=== PATIENT | male | born 1980 | race Caucasian/White ===

== ENCOUNTER 2018-02-16 08:19 | Emergency (ER) | payer BC ==
--- NOTE | 2018-02-16 10:31 | RAD ---
INDICATION: Right testicular pain-resolved COMPARISON: None TECHNIQUE: Duplex interrogation of the scrotum was performed. FINDINGS: Testicles: The testicles are Normal in size and echogenicity. There is no evidence of testicular mass. There are several tiny testicular calcifications bilaterally consistent with microlithiasis. There is symmetric flow on Doppler interrogation. There is no evidence of torsion.. The right testis measures 4.7 x 2.2 x 2.9 cm and the left 4.7 x 2.3 x 3.1 cm. There is symmetric flow on Doppler interrogation. Epididymides: There is a tiny right-sided epididymal cyst measuring 0.3 cm. The epididymides are normal in size. There is symmetric flow on Doppler interrogation. The right epididymal head measures 1.3 x 1.0 cm and the left 1.6 x 1.1 cm. Hydroceles: There is a small right-sided hydrocele. There is a large left-sided hydrocele containing debris. Varicoceles: None. Other: None. IMPRESSION: NO EVIDENCE OF WORRISOME TESTICULAR MASS OR TORSION. INCIDENTAL TESTICULAR MICROLITHIASIS. INCIDENTAL TINY RIGHT-SIDED EPIDIDYMAL CYST. LARGE, COMPLEX LEFT-SIDED HYDROCELE
--- NOTE | 2018-02-16 10:34 | ED ---
Abdominal Pain/Male - HPI Summary HPI Summary: 37 yo WM c/o waking up with right testicular pain radiating to flank and back not pain improved after urinating twice, once at home and once in ER - History of Current Complaint Chief Complaint: UCGU Stated Complaint: BACK PAIN Time Seen by Provider: 02/16/18 08:37 Hx Obtained From: Patient Onset/Duration: Sudden Onset Timing: Constant Severity Initially: Moderate Severity Currently: Mild Pain Intensity: 4 Radiates to: Back, Flank Character: Sharp, Dull, Colicy Aggravating Factor(s): Nothing Alleviating Factor(s): Nothing Associated Signs And Symptoms: Positive: Negative - Allergies/Home Medications Allergies/Adverse Reactions: Allergies Allergy/AdvReac Type Severity Reaction Status Date / Time No Known Allergies Allergy Verified 02/16/18 08:29 PMH/Surg Hx/FS Hx/Imm Hx Previously Healthy: Yes - Surgical History Surgery Procedure, Year, and Place: T & A Infectious Disease History: No Infectious Disease History: Denies: Traveled Outside the in Last 30 Days - Social History Alcohol Use: Occasionally Substance Use Type: Reports: None Smoking Status (MU): Never Smoked Tobacco Review of Systems Constitutional: Negative Eyes: Negative ENT: Negative Cardiovascular: Negative Respiratory: Negative Positive: Abdominal Pain, Other - right flank pain Positive: see HPI, flank pain, other - right testicular pain radiating to flank and back Musculoskeletal: Negative Skin: Negative All Other Systems Reviewed And Are Negative: Yes Physical Exam Triage Information Reviewed: Yes Vital Signs On Initial Exam: Initial Vitals Temp Pulse Resp BP Pulse Ox 36.8 C 87 18 156/110 100 02/16/18 08:24 02/16/18 08:24 02/16/18 08:24 02/16/18 08:24 02/16/18 08:24 Appearance: Positive: No Pain Distress Skin: Positive: Warm Eyes: Positive: Normal ENT: Positive: Normal ENT inspection Neck: Positive: Supple Respiratory/Lung Sounds: Positive: Clear to Auscultation Cardiovascular: Positive: Normal Abdomen Description: Positive: Other: - right flank tenderness. Negative: CVA Tenderness (R), CVA Tenderness (L) Bowel Sounds: Positive: Present Male Genital Exam: Positive: Other - Declined exam Musculoskeletal: Positive: Normal Neurological: Positive: Normal, CN Intact II-III Diagnostics - Vital Signs Vital Signs Temp Pulse Resp BP Pulse Ox 02/16/18 08:24 36.8 C 87 18 156/110 100 - Laboratory Lab Results: Lab Results 02/16/18 Range/Units 08:37 POC Urine Color Yellow POC Urine Clarity Clear POC Urine pH 6.5 (5-9) POC Ur Specif [place] 1.015 (1.010-1.030) POC Urine Protein 1+ A (Negative) POC Ur Glucose (UA) Negative (Negative) POC Urine Ketones Negative (Negative) POC Urine Blood 3+ A (Negative) POC Urine Nitrite Negative (Negative) POC Urine Bilirubin Negative (Negative) POC Urine Urobilinogen 0.2 (Negative) POC U Leukocyte Esteras Negative (Negative) Lab Statement: Any lab studies that have been ordered have been reviewed, and results considered in the medical decision making process. Abdominal Pain Fem Course/Dx - Course Course Of Treatment: UA reveals 3+ hematuria. Testicular sono- NO testicular mass or torsion, incidental tesiticular microlithiasis. Incidental tiny right sided epididymal cyst. Large complex left sided hydrocele. Renal sono- Normal B /L renal cortical echogenicity, No conspicuous stone, hydro or focal renal lesions. Dr Hudson office called, asked pt to be scheduled but refused unless a bladder US with ureteral jets are done. 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 Pt was still directed to follow up with urology if testicular pain continues. In my opinion, there are 2 processes going on,. 1) renal colic- pt has 3+ hematuria, and in light of cessation of pain AFTER voiding twice, pt probably PASSED a renal stone, therefore a bladder sono with ureteral jets ARE NOT NEEDED Urgently at this time. 2) Testicular pain- base of testicle- has hydroceles L>R, which can also be a cause for pain though not acutely and in such intensity, HOWEVER, pt should see a urologist in order that his large hydroceles are not increasingly hindering his daily functions and if he would need further intervention at some point. As such, a bladder sono can be obtained at urologist's upon further evaluation by urologist if testicular pain continues - Diagnoses Provider Diagnoses: Testicular/scrotal pain, Renal colic Discharge - Sign-Out/Discharge Documenting (check all that apply): Discharge/Admit/Transfer - Discharge Plan Condition: Stable Disposition: HOME Prescriptions: Ketorolac TAB * [Toradol TAB *] 10 mg PO Q6H 5 Days #30 tab Patient Education Materials: Renal Colic (ED), Testicle Pain (ED) Referrals: Rasta Hudson MD [Medical Doctor] - Additional Instructions: Follow up with urology if testicular pain continues - Billing Disposition and Condition Condition: STABLE Disposition: HOME
[2018-02-16] MEDS ORDERED: Ketorolac INJ* 60 MG/2 ML VIAL IM ONE (10:36)
--- NOTE | 2018-02-16 10:38 | RAD ---
Indication: RIGHT testicular and back pain. Comparison: No relevant prior exams available on the [facility] PACS for comparison. Technique: Renal ultrasound. Report: 12.8 x 4.5 x 6.0 cm RIGHT kidney. 12.6 x 4.5 x 4.6 cm LEFT kidney. Normal bilateral renal cortical echogenicity. No conspicuous stones, hydronephrosis, or focal renal lesions. Negative for perinephric fluid. IMPRESSION: Negative renal ultrasound.
== END 2018-02-16 12:22 | disposition home or self-care (01) ==
LOC: UCEAST 08:19
DX: N50.811 Right testicular pain (principal); N50.3 Cyst of epididymis; N23 Unspecified renal colic; N43.3 Hydrocele, unspecified
CPT/HCPCS: 76775; 76870; 81003; 96372; 99202; G0463; J1885

== ENCOUNTER 2018-05-14 18:57 | Emergency (ER) | payer BC ==
[2018-05-14 19:20] VITALS: BP 148/100
--- NOTE | 2018-05-14 19:41 | UC ---
Skin Complaint HPI - HPI Summary HPI Summary: 37 y/o male presents to the urgent care c/o C/O RASH AROUND RIGHT RIBS STARTING 05/13/18. PT STATES HE NOTICED A "SPIDER BITE " ON RIGHT CHEST AND STATES HE HAD RIGHT SIDED CHEST PAIN BEFORE THE RASH APPEARED. - History of Current Complaint Chief Complaint: UCSkin Time Seen by Provider: 05/14/18 19:38 Stated Complaint: SKIN REACTION Pain Intensity: 6 - Allergy/Home Medications Allergies/Adverse Reactions: Allergies Allergy/AdvReac Type Severity Reaction Status Date / Time No Known Allergies Allergy Verified 05/14/18 19:20 PMH/Surg Hx/FS Hx/Imm Hx - Surgical History Surgical History: Yes Surgery Procedure, Year, and Place: T & A - Social History Alcohol Use: Occasionally Alcohol Amount: 2-3 BOTTLES WINE/WEEK Substance Use Type: None Smoking Status (MU): Current Some Day Smoker - Immunization History Most Recent Tetanus Shot: UTD Physical Exam Vital Signs: Initial Vital Signs Temp 98.9 F 05/14/18 19:16 Pulse 90 05/14/18 19:16 Resp 16 05/14/18 19:16 BP 148/100 05/14/18 19:16 Pulse Ox 97 05/14/18 19:16 Course/Dx - Differential Diagnoses - Skin Complaint Differential Diagnoses: Abscess, Cellulitis, Poison [place], Poison [place], Varicella Zoster, Other - insect bite, spider bite, - Diagnoses Provider Diagnoses: 1- Varicella zoster. 2- elevated BP w/o Hx of HTN Discharge - Discharge Plan Condition: Stable Disposition: HOME Prescriptions: Ibuprofen TAB* [Motrin TAB* 800 MG] 800 mg PO Q6H PRN #30 tab PRN Reason: Pain ValACYclovir (*) [Valtrex 1 GM(*)] 1 gm PO TID #21 tab Patient Education Materials: Shingles (ED), Low-Sodium Diet (ED) Forms: *Work Release Referrals: Vanessa Mcneal [Primary Care Provider] - 3 Days Additional Instructions: 1-Please take Valacyclovir PO as directed to alleviate rash. 2-Take ibuprofen PO after meals for pain. 3-If symptoms do not improve or worsen please f/u with your PCP in 3 days or return to the urgent care for further evaluation and treatment. 4-Your BP is elevated today. please decrease salt in your diet, monitor BP and if it continues to be elevated please f/u with your PCP for further management - Billing Disposition and Condition Condition: STABLE Disposition: Home
== END 2018-05-14 20:04 | disposition home or self-care (01) ==
LOC: UCEAST 18:57
DX: B02.9 Zoster without complications (principal); R03.0 Elevated blood-pressure reading, without diagnosis of hypertension; Z72.0 Tobacco use
CPT/HCPCS: 99212; G0463

== ENCOUNTER 2018-12-16 16:20 | Emergency (ER) | payer BC ==
[2018-12-16 16:45] VITALS: BP 130/89
--- NOTE | 2018-12-16 17:30 | UC ---
Elbow Pain - HPI Summary HPI Summary: 38 yo male presents with LEFT elbow pain. He tells me that yesterday after getting a tattoo on his left ventral forearm, he developed mild left elbow pain. Today his pain increased and noticed some redness and swelling to his elbow. He has not taken anything OTC for his symptoms. He has had tattoos at this location before and says they are very clean and has never had an issue. Denies fever, chills, injury, or numbness/tingling. - History of Current Complaint Chief Complaint: UCUpperExtremity Stated Complaint: SKIN COMPLAINT Time Seen by Provider: 12/16/18 17:30 Hx Obtained From: Patient Severity Initially: Moderate Severity Currently: Moderate Pain Intensity: 7 Pain Scale Used: 0-10 Numeric - Allergies/Home Medications Allergies/Adverse Reactions: Allergies Allergy/AdvReac Type Severity Reaction Status Date / Time No Known Allergies Allergy Verified 12/16/18 16:45 PMH/Surg Hx/FS Hx/Imm Hx - Additional Past Medical History Additional PMH: None - Surgical History Surgical History: Yes Surgery Procedure, Year, and Place: T & A - Family History Known Family History: Positive: Hypertension - Social History Lives: With Family Alcohol Use: Weekly Alcohol Amount: 1 botte of wine Substance Use Type: None Smoking Status (MU): Former Smoker - Immunization History Most Recent Tetanus Shot: UTD Review of Systems All Other Systems Reviewed And Are Negative: Yes Constitutional: Positive: Negative Skin: Positive: Negative Respiratory: Positive: Negative Cardiovascular: Positive: Negative Neurovascular: Positive: Negative Musculoskeletal: Positive: Other: - Left elbow pain Neurological: Positive: Negative Psychological: Positive: Negative Physical Exam - Summary Physical Exam Summary: GENERAL: NAD. WDWN. No pain distress. SKIN: LEFT ELBOW: Mild erythema and edema with TTP overlying olecranon. Mild warmth. No open wound, streaking, induration, or drainage. Left ventral forearm with new tattoo - appears well. No erythema or edema. CHEST: No accessory muscle use. Breathing comfortably and in no distress. CV: Pulses intact radial and ulnar. Cap refill <2seconds MSK: LEFT ELBOW: FROM. Strength 5/5 including kick plate installer strength. Mild edema at olecranon. NEURO: Alert. Sensations intact hand and all fingers. PSYCH: Age appropriate behavior. Triage Information Reviewed: Yes Vital Signs: Initial Vital Signs Temp 99.7 F 12/16/18 16:41 Pulse 77 12/16/18 16:41 Resp 16 12/16/18 16:41 BP 130/89 12/16/18 16:41 Pulse Ox 98 12/16/18 16:41 Vital Signs Reviewed: Yes Images Front/Back of Body, Lg ([place]): 1 - Area of concern Elbow Pain Course/Dx - Course Course Of Treatment: I suspect pt has elbow bursitis from the position he was in for several hours during his forearm tattoo. Given recent needle exposure nearby to current site of swelling, redness, and pain - will start him on keflex to cover for infection. Advised to Rest and apply ice. F/u if symptoms do not improve. - Differential Dx/Diagnosis Provider Diagnosis: Olecranon bursitis, left elbow Discharge - Sign-Out/Discharge Documenting (check all that apply): Patient Departure All imaging exams completed and their final reports reviewed: No Studies - Discharge Plan Condition: Stable Disposition: HOME Prescriptions: Cephalexin CAP* [Keflex CAP*] 500 mg PO BID #14 cap Naproxen [Naproxen 500 mg tab] 500 mg PO BID #30 tablet Patient Education Materials: Elbow Bursitis (ED) Referrals: Vanessa Mcneal [Primary Care Provider] - Additional Instructions: If you develop a fever, shortness of breath, chest pain, new or worsening symptoms - please call your PCP or go to the ED. Your blood pressure was high at todays visit. Please see your primary provider within 4 weeks for recheck and re-evaluation. 1) Rest and apply ICE to your elbow multiple times a day 2) Take Naproxen twice a day to reduce pain and inflammation 3) If your notice the redness spreading or if you develop a fever - please be rechecked - Billing Disposition and Condition Condition: STABLE Disposition: Home - Attestation Statements Provider Attestation: I was available for consult. This patient was seen by the ORA. The patient was not presented to, seen by, or examined by me. -James
[2018-12-16] MEDS ORDERED: Cephalexin CAP* 500 MG PO ONE (17:36)
[2018-12-16] MEDS ORDERED: Naproxen TAB* 250 MG PO ONE (17:36)
== END 2018-12-16 17:55 | disposition home or self-care (01) ==
LOC: UCEAST 16:20
DX: M70.22 Olecranon bursitis, left elbow (principal); Z87.891 Personal history of nicotine dependence
CPT/HCPCS: 99212; A9270-GY; G0463